=== PATIENT | male | born 1945 | race Caucasian/White ===

== ENCOUNTER → 2024-05-08 10:17 | Outpatient (REF) | payer MEDICARE, SELFPAY | LOC: RCS 10:17 | PROVIDERS: ATTENDING PHYSICIAN Nuclear Medicine Nuclear Cardiology; FAMILY PHYSICIAN Registered Nurse | DX: R00.2 Palpitations (principal); I63.9 Cerebral infarction, unspecified; I49.8 Other specified cardiac arrhythmias; E78.2 Mixed hyperlipidemia | CPT/HCPCS: 93306 ==

== ENCOUNTER → 2024-05-09 08:17 | Outpatient (REF) | payer MEDICARE, SELFPAY | LOC: DHCBC/DCA 08:17 | PROVIDERS: ATTENDING PHYSICIAN Nuclear Medicine Nuclear Cardiology; FAMILY PHYSICIAN Registered Nurse | DX: R00.2 Palpitations (principal); I63.9 Cerebral infarction, unspecified; I49.8 Other specified cardiac arrhythmias; R07.9 Chest pain, unspecified | CPT/HCPCS: 78452; 93017; A9500; J2785 ==

== ENCOUNTER → 2024-06-21 10:39 | Day surgery (SDC) | payer MEDICARE, SELFPAY ==
[2024-06-21 11:17] VITALS: BMI 20.4
--- NOTE | 2024-06-21 13:19 | ITS.CL.IMPLP ---
[employer] Supervisor - Implant Loop
Implant Loop
Procedure Report:
Date of Procedure: June 21, 2024
Primary Care Provider: MARCY Harrell
Primary middle or intermediate school principal: Dr Pieter Healy
Procedure: Insertable Loop Recorder Implantation
Indication:
[Cryptogenic CVA
Procedure:
The patient was brought to the procedure area in a fasting state. The anterior chest was prepped and draped in standard sterile fashion. The fourth intercostal space along the left sternal border was identified and this area was anesthetized with 10
mL of 1% lidocaine. After gathering the skin in this area, a small punch incision was made at approx intercostal space 4-5 at left costo-sternal junction using the provided scalpel/punch tool. The loop recorder was loaded into the tunneling device.
A tunnel was created in the subcutaneous tissue at a 45� angle along the coronal plane away from the sternum and towards the left flank. The tunneling device was inverted and the plunger was depressed, inserting the loop recorder into the
subcutaneous space. The tunneling device was removed. Manual pressure provide hemostasis. Adequate signal was confirmed. The skin was closed with steri-strips. The estimated blood loss was < 1 cc. A clean dressing was placed over the wound.
There were no complications.
Implant:
[employer] Reveal LINQ
Conclusion: Uncomplicated implantation of loop recorder.
Recommendation: Routine ILR care.
Copy:
MARCY Harrell
Dr Pieter Healy
== END | disposition home or self-care (01) ==
LOC: CATH 10:39
PROVIDERS: ATTENDING PHYSICIAN Internal Medicine Cardiovascular Disease; FAMILY PHYSICIAN Registered Nurse; OTHER PHYSICIAN Nuclear Medicine Nuclear Cardiology
DX: Z09 Encounter for follow-up examination after completed treatment for conditions other than malignant neoplasm (principal); Z86.73 Personal history of transient ischemic attack (TIA), and cerebral infarction without residual deficits
CPT/HCPCS: 33285; C1764

== ENCOUNTER 2024-10-25 06:25 | Day surgery (SDC) | payer MEDICARE, SELFPAY | END 2024-10-25 10:13 | disposition home or self-care (01) | LOC: GI 06:25 | PROVIDERS: ATTENDING PHYSICIAN Specialist | DX: Z12.11 Encounter for screening for malignant neoplasm of colon (principal); K64.8 Other hemorrhoids; K57.30 Diverticulosis of large intestine without perforation or abscess without bleeding; R05.3 Chronic cough; R12 Heartburn; K44.9 Diaphragmatic hernia without obstruction or gangrene; K31.89 Other diseases of stomach and duodenum; Z86.0101 Personal history of adenomatous and serrated colon polyps | CPT/HCPCS: 43239; G0105; 88305; 88342 ==